=== PATIENT | female | born 1990 | race Caucasian/White ===

== ENCOUNTER 2017-11-22 18:48 | Emergency (ER) | payer OTHER ==
[~2017-11-22] VITALS: Ht 185.4 cm; Wt 77.1 kg
[~2017-11-22 18:48] MED LIST: EXCEDRIN MIGRA1 EAC1 PO; NAPROSYN500 MG PO; NORCO 5-325 TA1 EACH PO; TRINATE TABLET1 TAB PO
[2017-11-22 19:40] LABS: ABSOLUTE NEUTROPHILS 4.2 thou/uL (1.4-8.2); BASOPHILS 1.1 % (0.0-2.0); EOSINOPHILS 3.4 % (0.0-3.0); HEMATOCRIT 37.6 % (37.0-47.0); HEMOGLOBIN 12.9 gm/dL (12.0-15.0); LYMPHOCYTES 27.2 % (24.0-44.0); MCH 29.7 pg (26.0-34.0); MCHC 34.3 g/dL (28.0-37.0); MCV 86.5 fL (80.0-100.0); MONOCYTES 7.9 % (1.0-8.0); PLATELET COUNT 253 thou/uL (150-400); POLYS 60.4 % (36.0-66.0); RBC 4.34 mil/uL (4.20-5.00); RDW 12.5 % (10.5-14.5); WBC 6.9 thou/uL (4.0-11.0)
[2017-11-22 19:44] LABS: CALCIUM 8.8 mg/dL (8.5-10.1); CREATININE 0.6 mg/dL (0.6-1.0); POTASSIUM 4.2 mmol/L (3.5-5.1)
[2017-11-22 19:46] LABS: URINE BILIRUBIN NEGATIVE (Negative); URINE BLOOD NEGATIVE (Negative); URINE CLARITY CLEAR; URINE COLOR YELLOW; URINE GLUCOSE-RANDOM* NEGATIVE (Negative); URINE KETONES TRACE (Negative); URINE LEUKOCYTES NEGATIVE (Negative); URINE NITRITE NEGATIVE (Negative); URINE PROTEIN (DIPSTICK) NEGATIVE (Negative); URINE UROBILINOGEN 0.2 E.U./dl (0.2-1.0)
[2017-11-22] MEDS ORDERED: NORCO 5-325 TA1 EACH PO (20:55)
== END 2017-11-22 21:07 | disposition home or self-care (01) ==
LOC: ER 18:48
PROVIDERS: Emergency Medicine
DX: N93.8 Other specified abnormal uterine and vaginal bleeding (principal)